=== PATIENT | female | born 1950 | race Two or more races ===

== ENCOUNTER 2016-05-03 11:03 | Emergency (ER) | payer OTHER ==
[~2016-05-03] VITALS: Ht 157.5 cm; Wt 63.5 kg
[~2016-05-03 11:03] MED LIST: CARISOPRODOL350 MG ORAL; COLACE100 MG ORAL; CYCLOBENZAPRINE10 MG ORAL; CYMBALTA20 MG ORAL; CYMBALTA30 MG ORAL; GABAPENTIN600 MG ORAL; GABAPENTIN800 MG ORAL; HYDROCODON-ACE1 EA13 ORAL; HYDROCODON-ACE1 EA15 ORAL; MELOXICAM15 MG PO; NAPROXEN500 M2 ORAL; NORCO1 E1 ORAL
[2016-05-03 11:09] VITALS: BP 148/94
[2016-05-03] MEDS ORDERED: Ketorolac 30mg Inj IV ONE (11:30)
[2016-05-03] MEDS ORDERED: HYDROmorphone 1mg/ml Carpuject IVP ONE (11:30)
[2016-05-03 11:44] LABS: BASOPHILS % (AUTO) 1.1 % (0.0-2.0); EOSINOPHILS % (AUTO) 0.4 % (0.0-3.0); LYMPHOCYTES % (AUTO) 18.9 % (20.0-45.0); MEAN CORPUSCULAR HEMOGLOBIN 28.9 PG (27.0-31.0); MEAN CORPUSCULAR HGB CONC 32.2 G/DL (32.0-36.0); MEAN CORPUSCULAR VOLUME 90 FL (80-99); MEAN PLATELET VOLUME 6.2 FL (6.5-10.1); MONOCYTES % (AUTO) 5.1 % (1.0-10.0); NEUTROPHILS % (AUTO) 74.5 % (45.0-75.0); PLATELET COUNT 250 K/UL (150-450); RED BLOOD COUNT 4.51 M/UL (4.20-5.40); RED CELL DISTRIBUTION WIDTH 12.8 % (11.6-14.8); WHITE BLOOD COUNT 7.9 K/UL (4.8-10.8)
[2016-05-03 11:53] LABS: PROTHROMBIN TIME 10.3 SEC (9.30-11.50)
[2016-05-03 12:32] LABS: ALANINE AMINOTRANSFERASE 24 U/L (3-33); ALBUMIN/GLOBULIN RATIO 1.3 (1.0-2.7); ANION GAP 13 (5-15); ASPARTATE AMINO TRANSFERASE 18 U/L (5-40); CALCIUM 7.7 mg/dL (8.6-10.2); CARBON DIOXIDE 25 mEQ/L (20-30); CHLORIDE 106 mEQ/L (98-107); CREATININE 0.4 mg/dL (0.5-0.9); GLOMERULAR FILTRATION RATE > 60 mL/min (>60); HEMOLYSIS 2; POTASSIUM 3.3 mEQ/L (3.4-4.9); SODIUM 144 mEQ/L (135-145); TOTAL PROTEIN 5.7 g/dL (6.6-8.7)
[2016-05-03 13:54] VITALS: BP 134/80
--- NOTE | 2016-05-03 14:00 | Emergency Room Report ---
History of Present Illness General Chief Complaint: Back Pain-No Injury Source: Patient Present Illness HPI 66-year-old female presents to ED complaining of back pain. Family is at bedside. States that patient has chronic history of back pain for several years now. Patient was at [facility] yesterday received morphine but states that the pain is not improved. Family states that patient had MRI done 2 months ago which showed significant disc protrusion which was new compared to prior studies. Patient was scheduled to have surgery several months ago. Pain is a 10 out of 10. Radiating down both legs. No aggravating relieving factors. Denies any bowel or bladder incontinence. Denies any other associated symptoms Allergies: Coded Allergies: No Known Allergies (Unverified , 05/12/15) Patient History Past Medical History: other - back pain Past Surgical History: none Pertinent Family History: none Social History: Denies: alcohol use, drug use, smoking Now: No Immunizations: UTD Reviewed Nursing Documentation: PMH: Agreed, PSxH: Agreed Nursing Documentation-PMH Past Medical History: No History, Except For Review of Systems All Other Systems: negative except mentioned in HPI Physical Exam Vital Signs Date Time Temp Pulse Resp B/P Pulse Ox O2 Delivery O2 Flow Rate FiO2 05/03/16 10:59 97.3 84 20 148/94 99 Room Air Sp02 EP Interpretation: reviewed, normal General Appearance: no apparent distress, alert, GCS 15, non-toxic Head: normocephalic Eyes: bilateral eye PERRL, bilateral eye normal inspection ENT: normal ENT inspection Neck: normal inspection Respiratory: chest non-tender, lungs clear, normal breath sounds, speaking full sentences Cardiovascular #1: regular rate, rhythm, no edema Gastrointestinal: normal bowel sounds, non tender, soft, non-distended, no guarding, no rebound Rectal: deferred Genitourinary: no CVA tenderness, vertebral tenderness Musculoskeletal: normal inspection Neurologic: alert, oriented x3, responsive, motor strength/tone normal, sensory intact, speech normal Psychiatric: normal inspection Skin: normal inspection Lymphatic: normal inspection Medical Decision Making Diagnostic Impression: Primary Impression: Exacerbation of chronic back pain Additional Impression: Intractable back pain ER Course Hospital Course 66-year-old female presents to ED with back pain. Differential diagnoses include: SBO, aortic dissection, pyelonephritis, kidney stone, Clinical course Patient placed on stretcher. park aide. After initial history and physical I ordered labs, IV fluids, pain medications Labs - no leukocytosis, Hb/Hct stable. electrolytes ok. I reviewed MRI results-patient has significant disc protrusion with stenosis. No need for additional imaging at this time Patient given pain medications but still continues to have pain and unable to walk Because of insurance patient will be transferred to [facility] I feel this is a highly complex case requiring extensive working including EKG/ Rhythm strip, Xray/CT/US, Blood/urine lab work, repeat exams while in ED, and administration of strong opiates/narcotics for pain control, admission to hospital or close patient follow up. Diagnosis -intractable back pain Transferred in serious condition Labs Test 05/03/16 11:25 05/03/16 12:10 White Blood Count 7.9 K/UL (4.8-10.8) Red Blood Count 4.51 M/UL (4.20-5.40) Hemoglobin 13.0 G/DL (12.0-16.0) Hematocrit 40.4 % (37.0-47.0) Mean Corpuscular Volume 90 FL (80-99) Mean Corpuscular Hemoglobin 28.9 PG (27.0-31.0) Mean Corpuscular Hemoglobin Concent 32.2 G/DL (32.0-36.0) Red Cell Distribution Width 12.8 % (11.6-14.8) Platelet Count 250 K/UL (150-450) Mean Platelet Volume 6.2 FL (6.5-10.1) Neutrophils (%) (Auto) 74.5 % (45.0-75.0) Lymphocytes (%) (Auto) 18.9 % (20.0-45.0) Monocytes (%) (Auto) 5.1 % (1.0-10.0) Eosinophils (%) (Auto) 0.4 % (0.0-3.0) Basophils (%) (Auto) 1.1 % (0.0-2.0) Prothrombin Time 10.3 SEC (9.30-11.50) Prothromb Time International Ratio 1.0 (0.9-1.1) Activated Partial Thromboplast Time 25 SEC (23-33) Sodium Level 144 mEQ/L (135-145) Potassium Level 3.3 mEQ/L (3.4-4.9) Chloride Level 106 mEQ/L (98-107) Carbon Dioxide Level 25 mEQ/L (20-30) Anion Gap 13 (5-15) Blood Urea Nitrogen 11 mg/dL (7-23) Creatinine 0.4 mg/dL (0.5-0.9) Estimat Glomerular Filtration Rate > 60 mL/min (>60) Glucose Level 95 mg/dL (74-106) Calcium Level 7.7 mg/dL (8.6-10.2) Total Bilirubin < 0.2 mg/dL (0.0-1.2) Aspartate Amino Transf (AST/SGOT) 18 U/L (5-40) Alanine Aminotransferase (ALT/SGPT) 24 U/L (3-33) Alkaline Phosphatase 84 U/L (35-104) Total Protein 5.7 g/dL (6.6-8.7) Albumin 3.3 g/dL (3.5-5.2) Globulin 2.4 g/dL Albumin/Globulin Ratio 1.3 (1.0-2.7) Last Vital Signs Date Time Temp Pulse Resp B/P Pulse Ox O2 Delivery O2 Flow Rate FiO2 05/03/16 12:11 97.3 05/03/16 11:09 81 20 148/94 99 Room Air Status: improved Disposition: XFER SHT-TRM HOSP Condition: Serious Referrals: EMPLOYEE ANGELO WHITMAN (PCP) JUANA HENDRICKS M.D. May 03, 2016 14:00
== END 2016-05-03 13:54 | disposition short-term general hospital (02) ==
LOC: EDBD 11:03 → EMR 11:30
DX: M54.9 Dorsalgia, unspecified (principal); G89.29 Other chronic pain
CPT/HCPCS: 36415; 80053; 85025; 85610; 85730; 96360; 96374; 96375; 99285; J1170; J1885